=== PATIENT | male | born 1945 ===

== ENCOUNTER 2020-11-22 09:09 | Outpatient (CLI) | payer OTHER | END 2020-11-22 09:16 | disposition home or self-care (01) | LOC: SONOGRAMA 09:09 | PROVIDERS: ATTEND General Practice | DX: M25.531 Pain in right wrist (principal); D36.7 Benign neoplasm of other specified sites; M06.4 Inflammatory polyarthropathy ==

== ENCOUNTER 2021-07-27 09:23 | Outpatient (CLI) | payer OTHER | END 2021-07-27 09:31 | disposition home or self-care (01) | LOC: RAD 09:23 | PROVIDERS: ATTEND General Practice | DX: M62.830 Muscle spasm of back (principal); M54.12 Radiculopathy, cervical region ==

== ENCOUNTER 2021-10-25 13:30 | Outpatient (CLI) | payer OTHER | END 2021-10-25 14:00 | disposition home or self-care (01) | LOC: ASH CLINIC 13:30 | DX: U07.1 COVID-19 (principal); Z23 Encounter for immunization ==

== ENCOUNTER → 2024-11-07 | Emergency (ER) | payer OTHER ==
[~2024-11-07] VITALS: Ht 175.3 cm; Wt 83.5 kg
[~2024-11-07] MED LIST: KETOROLAC TROMETHAMINE 30 MG VIAL IM ONE; KETOROLAC TROMETHAMINE 60 MG VIAL IM ONE; LOSARTAN POTASS50 MG
== END | disposition home or self-care (01) ==
LOC: ER 09:33
DX: H66.91 Otitis media, unspecified, right ear (principal); I10 Essential (primary) hypertension
CPT/HCPCS: 96372; 99282; J1885